=== PATIENT | male | born 1955 | race Caucasian/White ===

== ENCOUNTER → 2017-07-19 | Outpatient (CLI) | payer OTHER ==
[2016-03-18 14:01] VITALS: BP 157/71
[~2017-07-19] MED LIST: ALBU8.5H8 IH; ALBU8.5H8 INH; AMLO2.5T PO; AMLO5TAB2 PO; AMMO225L8 TP; ARFO15VI NEB; ASPI-482 PO; ASPI-630 PO; AZIL1TAB3 PO; AZIT250T6 PO; BENZ100C15 PO; BUDE0.5A11 IH; BUSP15TA PO; CARV12.52 PO; CETI10TA16 PO; CLIN300C8 PO; CLON0.1T PO; CLON0.3T PO; CRESTOR10 MG PO; CRESTOR40 MG PO; DOXY100C2 PO; ESOM40CA PO; FAMO20TA5 PO; FENO54TA PO; FLUT10.6 IH; FLUT16SP2 NS; FLUT1DIS5 IH; FURO-68 PO; FURO80TA72 PO; GABA-586 PO; HYDR-2766 PO; HYDR-2869 PO; HYDR-963 PO; INSU100C4 SQ; INSU100I27 SQ; INSU100V SQ; INSU200I SQ; IPRA0.2S5 NEB; LINA5TAB4 PO; LOSA100T6 PO; LUBI24CA7 PO; MELO15TA23 PO; METO2.5T PO; MOME17SP NS; MUPI22OI2 TP; NEBI10TA3 PO; NIFE30TA7 PO; OLME1TAB35 PO; ONDA4TAB10 SL; PANT40TA3 PO; PHEN37.5 PO; PRAM0.255 PO; PREG150C PO; PREG300C PO; RANO500T2 PO; TAMS0.4C97 PO; TIOT18CA IH; TOPI100T8 PO; TRIA15OI9 TP; ZOLP10TA4 PO; duoneb
--- NOTE | 2017-07-20 07:50 | RAD ---
3 views right and left foot 07/19/2017 Clinical indication: Right left foot pain. Comparison: None. Findings: Right foot: No acute fracture or traumatic malalignment. Joint spaces are maintained. There are diffuse vascular calcifications. Normal bony alignment. Left foot: No acute fracture or traumatic malalignment. Joint spaces are maintained. Normal bony alignment. Vascular calcifications are noted. Impression: No acute osseous abnormality.
== END | disposition home or self-care (01) ==
LOC: RAD 16:52
PROVIDERS: ATTEND Nurse Practitioner Family
DX: M25.872 Other specified joint disorders, left ankle and foot (principal); M25.871 Other specified joint disorders, right ankle and foot
CPT/HCPCS: 73630

== ENCOUNTER 2017-07-21 12:42 | Observation (INO) | payer OTHER ==
[2017-07-21] VITALS (8 sets, daily range): BP systolic 117–168; BP diastolic 51–83
[~2017-07-21] VITALS: Ht 162.6 cm; Wt 93.7 kg
[~2017-07-21 12:42] MED LIST changes: -AMMO225L8 TP; -BENZ100C15 PO; -DOXY100C2 PO; -MUPI22OI2 TP
[2017-07-21] MEDS ORDERED: DEXTROSE 50% 25 GM / 50ML DISP.SYRIN. IV PRN (15:15)
[2017-07-21] MEDS ORDERED: FUROSEMIDE 40 MG/4 ML VIAL IVP ONE (15:30)
[2017-07-21] MEDS ORDERED: DOXY100C2 PO (15:33)
[2017-07-21] MEDS ORDERED: BENZ100C15 PO (15:33)
[2017-07-21] MEDS ORDERED: TIOT18CA IH (15:33)
[2017-07-21] MEDS ORDERED: FURO-68 PO (15:33)
[2017-07-21] MEDS ORDERED: AMMO225L8 TP (15:33)
[2017-07-21] MEDS ORDERED: GABA-586 PO (15:33)
[2017-07-21] MEDS ORDERED: INSU100I27 SQ (15:33)
[2017-07-21] MEDS ORDERED: CETI10TA16 PO (15:33)
[2017-07-21 15:42] LABS: ALBUMIN 3.1 g/dL (3.4-5.0); ALBUMIN/GLOBULIN RATIO 0.8 (1.0-1.7); CREATININE 1.5 mg/dL (0.7-1.3); GFR 47.6; MAGNESIUM 1.8 mg/dL (1.8-2.4); POTASSIUM 3.9 mmol/L (3.5-5.1); TOTAL BILIRUBIN 0.4 mg/dL (0.2-1.0); URIC ACID 7.6 mg/dL (3.5-7.2)
--- NOTE | 2017-07-21 15:51 | RAD ---
Chest radiograph 2 views 07/21/2017 Clinical indication: Congestive heart biliary, shortness of breath Comparison: Chest radiographs 03/17/2016. Findings: Cardiac and mediastinal silhouettes are unremarkable. There is a tiny calcified granuloma in the left lung base. Mild bibasilar atelectasis. No pleural effusion, pneumothorax or focal consolidation. Impression: Mild bibasilar atelectasis without evidence of CHF or consolidating pneumonia.
[2017-07-21 16:24] LABS: BASO # 0.1 x10^3/uL (0.0-0.2); BASO % 1 % (0-3); EOS # 0.3 x10^3/uL (0.0-0.7); EOS % 4 % (0-3); HEMATOCRIT 40.8 % (39.0-53.0); HEMOGLOBIN 13.2 g/dL (13.0-17.5); LYMPH # 1.7 x10^3/uL (1.0-4.8); LYMPH % 22 % (24-48); MEAN CORPUSCULAR HEMOGLOBIN 28 pg (25-35); MEAN CORPUSCULAR HGB CONC 32 g/dL (31-37); MEAN CORPUSCULAR VOLUME 86 fL (79-100); MONO # 0.7 x10^3/uL (0.0-1.1); MONO % 10 % (0-9); NEUT # 4.7 x10^3uL (1.8-7.7); NEUT % 63 % (31-73); PLATELET COUNT 305 x10^3/uL (140-400); RED BLOOD COUNT 4.75 x10^6/uL (4.30-5.70); RED CELL DISTRIBUTION WIDTH 15.8 % (11.5-14.5); WHITE BLOOD COUNT 7.5 x10^3/uL (4.0-11.0)
[2017-07-21] MEDS: INSULIN ASPART 300 UNITS/3 ML INSULN.PEN SQ SCH ×2 (16:30→21:37)
[2017-07-21] MEDS ORDERED: TRIAMCINOLONE ACETONIDE 0.1% TOPICAL CREAM 15GM TUBE. TP PRN (16:45)
[2017-07-21 17:41] LABS: SEDIMENTATION RATE 65 (0-15)
[2017-07-21] MEDS: HYDROcodone/APAP 10/325 1 TAB TABLET PO PRN (17:55)
[2017-07-21 18:30] LABS: BILIRUBIN,URINE NEG (NEG); CLARITY,URINE CLEAR; COLOR,URINE STRAW; GLUCOSE,URINE 100 mg/dL (NEG)
[2017-07-21 18:31] LABS: BACTERIA,URINE 0 /HPF (0-FEW); NITRITE,URINE NEG (NEG); RBC,URINE 0 /HPF (0-2); SQUAMOUS EPITHELIAL CELL,UR OCC /LPF; UROBILINOGEN,URINE 0.2 mg/dL (0.2 mg/dL); WBC,URINE OCC /HPF (0-4)
[2017-07-21] MEDS: BUDESONIDE 0.5 MG/2 ML NEBU NEB SCH (20:00)
[2017-07-21] MEDS: IPRATRPIUM/ALBUTEROL 0.5/2.5MG 3 ML NEBU. NEB SCH (20:00)
--- NOTE | 2017-07-21 20:39 | HP ---
ADMIT DATE: 07/21/2017 REASON FOR ADMISSION: Fluid overload. HISTORY OF PRESENT ILLNESS: This is a 62-year-old gentleman who was directly admitted from Dr. Dubois's office for 11-pound weight gain in the last several days. He does have a history of admission to [facility] recently for the same fluid overload. He has an extensive medical history. He does complain of a little bit of shortness of breath, a little bit of chest pain and generalized swelling of the abdomen and feet. PAST MEDICAL HISTORY: COPD, diastolic heart failure, has had acute on chronic as well as chronic, congestive heart failure, edema, hyperkalemia, peripheral vascular disease, type 1 diabetes, renal failure, fatty liver, hypertension, GERD, sarcoidosis, venous stasis, gastroparesis, onychomycosis, sleep apnea, chronic low back pain, diabetic neuropathy of the feet, stress and anxiety. He also has a history of MRSA, constipation, BPH, leg pain. ALLERGIES: Losartan, penicillin, morphine. MEDICATIONS: Reviewed as best as could be done and corrected. He knows his medications fairly well. He states his current Lasix dose is 40 mg b.i.d. and his Flomax was just increased to 0.4 b.i.d. He also recently finished doxycycline, which was started on 07/10. FAMILY HISTORY: Negative. SOCIAL HISTORY: The patient quit smoking in 1989. No alcohol or drug use. REVIEW OF SYSTEMS: Multifactorial. He has foot pain. He has toenail pain. He has pain in his legs, little bit of shortness of breath, cough, distended abdomen, fluid retention and weight gain of 11 pounds. OBJECTIVE: VITAL SIGNS: Blood pressure 168/76, pulse 84, respirations 20, pulse ox 96% on room air, temperature 97.8. Height 64 inches, weight 205.31 pounds. The patient's weight in March was 185 and his weight just a few days ago was 189 pounds on 05/24. GENERAL: A pleasant 62-year-old in no acute distress. HEENT: Hearing is normal. Eyes are clear. Nose patent. Throat is clear. He is edentulous. NECK: Supple. There is no JVD. LUNGS: With few scattered rhonchi, otherwise clear. CARDIOVASCULAR: Regular rhythm and rate. ABDOMEN: Very distended almost tympanitic, but nontender to palpation. Bowel sounds are positive. EXTREMITIES: With 3+ edema. All of his toes have onychomycosis and both great toes are mildly erythematous with evidence of ingrown toenail appearance. LABORATORY DATA: Sodium 134. BUN 41, creatinine 1.5, glucose 319. His uric acid was 7.6. Other labs are pending. Chest x-ray: Mild basilar atelectasis without evidence of CHF or pneumonia. Rest of the studies are pending. ASSESSMENT: 1. Acute on chronic congestive heart failure. 2. Ingrown toenails. 3. Hyperuricemia, but doubt gout. 4. Fatty liver. 5. Weight gain. 6. Type 1 diabetes with hyperglycemia and hypoglycemia. 7. History of coronary artery disease with stent deployment in 2002. 8. Hyperlipidemia. 9. Chronic obstructive pulmonary disease. 10. Urinary retention. 11. Benign prostatic hypertrophy. PLAN: IV Lasix twice a day. Strict I and O. Flomax adjusted to 0.4 twice a day as just ordered. Discontinue doxycycline as he completed that. We will try just a little Bactroban around the toenails. Discussed with Dr. Dubois concerning the uric acid of 7.6. Cardiology consult. BRENDA DELAROSA DO DR: MARCOS/soledad JOB#: [id number] / [id number]
[2017-07-21] MEDS ORDERED: NON FORMULARY ITEM (Arformoterol Tartrate (Brovana) 15 MCG) NEB SCH (21:00)
[2017-07-21] MEDS ORDERED: DOXYCYCLINE HYCLATE 100 MG TABLET PO SCH (21:00)
[2017-07-21] MEDS ORDERED: IPRATROPIUM BROMIDE 0.5 MG/2.5 ML NEBU. NEB SCH (21:00)
[2017-07-21] MEDS: RANOLAZINE 500 MG TAB.ER.12H PO SCH (21:22)
[2017-07-21] MEDS: busPIRone 15 MG TABLET. PO SCH (21:22)
[2017-07-21] MEDS: BENZONATATE 100 MG CAPSULE. PO SCH (21:22)
[2017-07-21] MEDS: TAMSULOSIN 0.4 MG CAP.ER.24H. PO SCH (21:23)
[2017-07-21] MEDS: METOPROLOL TART IMMED RELEASE 50 MG TABLET PO SCH (21:23)
[2017-07-21] MEDS: PREGABALIN 150 MG CAPSULE PO SCH (21:23)
[2017-07-21] MEDS: GABAPENTIN 300 MG CAPSULE. PO SCH (21:23)
[2017-07-21] MEDS: ATORVASTATIN CALCIUM 20 MG TABLET PO SCH (21:24)
[2017-07-21] MEDS: MUPIROCIN 2% TOPICAL OINTMENT 22GM TUBE. TP SCH (21:24)
[2017-07-21] MEDS: AMMONIUM LACTATE 12% TOPICAL LOTION 226GM BOTTLE. TP SCH (21:24)
[2017-07-21] MEDS: INSULIN DETEMIR 300 UNITS/3 ML INSULN.PEN. SQ SCH (21:37)
[2017-07-22] VITALS (19 sets, daily range): BP systolic 117–149; BP diastolic 47–71
[2017-07-22] MEDS: HYDROcodone/APAP 10/325 1 TAB TABLET PO PRN ×3 (00:13→15:39)
[2017-07-22] MEDS: IPRATRPIUM/ALBUTEROL 0.5/2.5MG 3 ML NEBU. NEB SCH ×4 (05:16→20:33)
[2017-07-22 06:28] LABS: BASO # 0.1 x10^3/uL (0.0-0.2); BASO % 2 % (0-3); EOS # 0.4 x10^3/uL (0.0-0.7); EOS % 6 % (0-3); HEMATOCRIT 39.7 % (39.0-53.0); HEMOGLOBIN 13.9 g/dL (13.0-17.5); LYMPH # 2.1 x10^3/uL (1.0-4.8); LYMPH % 32 % (24-48); MEAN CORPUSCULAR HEMOGLOBIN 29 pg (25-35); MEAN CORPUSCULAR HGB CONC 35 g/dL (31-37); MEAN CORPUSCULAR VOLUME 84 fL (79-100); MONO # 0.9 x10^3/uL (0.0-1.1); MONO % 13 % (0-9); NEUT # 3.1 x10^3uL (1.8-7.7); NEUT % 48 % (31-73); PLATELET COUNT 287 x10^3/uL (140-400); RED BLOOD COUNT 4.72 x10^6/uL (4.30-5.70); RED CELL DISTRIBUTION WIDTH 15.5 % (11.5-14.5); WHITE BLOOD COUNT 6.6 x10^3/uL (4.0-11.0)
[2017-07-22 06:38] LABS: CREATININE 1.4 mg/dL (0.7-1.3); GFR 51.5; MAGNESIUM 1.9 mg/dL (1.8-2.4)
[2017-07-22] MEDS: INSULIN ASPART 300 UNITS/3 ML INSULN.PEN SQ SCH ×4 (07:30→21:00)
[2017-07-22] MEDS: busPIRone 15 MG TABLET. PO SCH ×2 (08:39→21:15)
[2017-07-22] MEDS: ASPIRIN 81 MG TAB.CHEW PO SCH (08:39)
[2017-07-22] MEDS: metOLazone 2.5 MG TABLET PO SCH (08:40)
[2017-07-22] MEDS: PREGABALIN 150 MG CAPSULE PO SCH ×2 (08:41→21:14)
[2017-07-22] MEDS: METOPROLOL TART IMMED RELEASE 50 MG TABLET PO SCH ×2 (08:41→21:13)
[2017-07-22] MEDS: GABAPENTIN 300 MG CAPSULE. PO SCH ×3 (08:41→21:13)
[2017-07-22] MEDS: CETIRIZINE HCL 10 MG TABLET PO SCH (08:42)
[2017-07-22] MEDS: BENZONATATE 100 MG CAPSULE. PO SCH ×3 (08:42→21:13)
[2017-07-22] MEDS: RANOLAZINE 500 MG TAB.ER.12H PO SCH ×2 (08:42→21:16)
[2017-07-22] MEDS: MUPIROCIN 2% TOPICAL OINTMENT 22GM TUBE. TP SCH ×2 (08:43→21:16)
[2017-07-22] MEDS: AMMONIUM LACTATE 12% TOPICAL LOTION 226GM BOTTLE. TP SCH ×2 (08:43→21:16)
[2017-07-22] MEDS: PANTOPRAZOLE 40 MG TABLET. PO SCH (08:44)
[2017-07-22] MEDS: TAMSULOSIN 0.4 MG CAP.ER.24H. PO SCH ×2 (08:44→21:13)
[2017-07-22] MEDS ORDERED: TAMSULOSIN 0.4 MG CAP.ER.24H. PO SCH (09:00)
[2017-07-22] MEDS: FLUTICASONE 50MCG/NASAL SPRAY 16GM BOTTLE. NS SCH (09:07)
[2017-07-22] MEDS: BUDESONIDE 0.5 MG/2 ML NEBU NEB SCH ×2 (09:44→20:34)
--- NOTE | 2017-07-22 10:02 | RAD ---
PQRS Compliance Statement: One or more of the following individualized dose reduction techniques were utilized for this examination: 1. Automated exposure control 2. Adjustment of the mA and/or kV according to patient size 3. Use of iterative reconstruction technique CT CHEST ABDOMEN PELVIS WO Clinical Indication: sob, anasarca, sarcoidosis. Chest and abdominal pain x1 day. Comparison: CT chest with contrast 09/08/2004. Technique: Helical CT imaging of the chest abdomen and pelvis is performed without IV or oral contrast. Findings: Evaluation of vascular structures, solid organs and bowel is limited without oral and IV contrast and may decrease sensitivity for detection of pathology. Thyroid is symmetric. Mediastinal and bilateral hilar adenopathy is improved from the prior study. There is an enlarged right paratracheal lymph node measuring 1.4 cm. There are calcified subcarinal and left hilar lymph nodes. Left axillary lymph nodes are benign-appearing. Great vessels are normal caliber. There is coronary artery disease. Mitral annular calcification. Cardiac size normal, no pericardial effusion. There is no pleural effusion. The central airways are patent. Mild respiratory motion artifact. Mild scarring or atelectasis in the medial upper lobes anteriorly. Calcified granuloma left lower lobe. Mild scarring or atelectasis in the bilateral lower lobes just above the hemidiaphragms. Lungs otherwise clear. Calcified granulomas in the liver and the spleen. Cholecystectomy. Atrophic pancreas. Adrenal glands, and abdominal aorta caliber are normal. There is no hydronephrosis. Stomach unremarkable. No dilated small bowel. No colon wall thickening. Large colon stool volume. Appendix is not identified, no secondary signs of appendicitis. No abdominal adenopathy or free fluid. There is motion artifact in the midabdomen degrading image quality. Urinary bladder is distended, otherwise normal. Prostate size normal. No pelvic free fluid. Bilateral inguinal lymph nodes may be reactive. No compression fracture in the thoracolumbar spine. IMPRESSION: 1. Mild scarring or atelectasis in the lungs. 2. Mediastinal and bilateral hilar adenopathy is improved from prior study. 3. There is large colon stool volume, correlate for constipation.
[2017-07-22] MEDS: FUROSEMIDE 40 MG/4 ML VIAL IVP SCH ×2 (10:08→14:03)
[2017-07-22] MEDS: POLYETHYLENE GLYCOL 3350 17 GM PACKET. PO SCH (10:30)
--- NOTE | 2017-07-22 11:36 | PDOC2 ---
CONSULT Date of Admission DATE: 07/22/17 TIME: 10:59 Reason for Consult: diastolic heart failure History of Present Illness Mr Adair is a 62 year old male with history of coronary artery disease with prior PCI/Stenting, chronic diastolic heart failure, hypertension and type 1 diabetes mellitus. He reports an admission to [facility] a couple weeks ago with edema, renal failure and he reports being treated with antibiotics. He most recently had an echo about 2 months ago that was reportedly normal. He normally [facility] with [facility]. He reports after discharge from the hospital he had a significant increase in his swelling so went back to his PCP. He complains of increased dyspnea and a non productive cough. He denies fever or chills. He has 4 pillow orthopnea that he reports is chronic and unchanged. He reports a stress test last year that was ok and his last 2 cardiac catheterizations have not revealed patent stents. Past Medical History COPD, diastolic heart failure, edema, hyperkalemia, peripheral vascular disease , type 1 diabetes, renal failure, fatty liver, hypertension, GERD, sarcoidosis, venous stasis, gastroparesis, onychomycosis, sleep apnea, chronic low back pain , diabetic neuropathy of the feet, anxiety, MRSA, constipation, BPH. CAD with bare metal stent to LAD in 2002 followed by balloon angioplasty for in- stent restenosis in Aug 2003 and Aug 2004. Echo 03/14/16 The left ventricle is normal size. There is normal left ventricular wall thickness. There is normal LV segmental wall motion. Left ventricular systolic function is normal. The estimated ejection fraction is 60-65%. The left ventricular diastolic function and filling is normal for age. There is mild aortic valve sclerosis. The PA pressure is estimated at 23 mmHg. Cardiac cath 02/20/15 1. Systemic hypertension with mildly elevated left ventricular end-diastolic pressure. 2. Patent stents in the proximal left anterior descending coronary artery with mild disease elsewhere. 3. The patient was previously known to have normal left ventricular systolic function with an estimated ejection fraction of 60% to 65% by echocardiogram that was performed in 05/2014. 6 MINUTE WALK TEST IMPRESSION (06/18/2014): Six minute walk test did not reveal desaturation or chronotropic insufficiency. Functional capacity was good. EXERCISE NUCLEAR STRESS TEST IMPRESSION (03/26/2013): Hemodynamic response: There was a normal heart rate and a normal blood pressure response to stress. Clinical response: There was chest pain during stress, which resolved during recovery. Arrhythmias: None. Stress ECG: There were no significant stress induced ECG changes. Exercise capacity: Fair. Myocardial perfusion: Normal perfusion without evidence of infarction or ischemia. Wall motion: Normal. Ejection fraction: 72%. Compared to the report (images were not available for review) from the previous study performed on 06/13/2011, there was no significant change. Family History non contributory Social History quit smoking >15 yrs ago, no significant ETOH, no illicit drugs Current Medications Current Medications Furosemide (Lasix) 40 mg 1X ONCE IVP Last administered on 07/21/17 15:48; Start 07/21/17 at 15:30; Stop 07/21/17 at 15:31; Status DC Insulin Aspart (NovoLOG) 0-9 UNITS QIDACHS SQ Last administered on 07/21/17 21:37; Start 07/21/17 at 16:30 Dextrose 12.5 gm PRN Q15MIN PRN IV SEE COMMENTS Last administered on 17:12; Start 07/21/17 at 15:15 Lactic Acid (Lac-Hydrin) 1 sully BID TP Last administered on 07/22/17 08:43; Start 07/21/17 at 21:00 Aspirin (Children'S Aspirin) 81 mg DAILY PO Last administered on 07/22/17 08: 39; Start 07/22/17 at 09:00 Benzonatate (Tessalon Perle) 100 mg TID PO Last administered on 07/22/17 08: 42; Start 07/21/17 at 21:00 Buspirone HCl (Buspar) 15 mg BID PO Last administered on 07/22/17 08:39; Start 07/21/17 at 21:00 Cetirizine HCl (ZyrTEC) 10 mg DAILY PO Last administered on 07/22/17 08:42; Start 07/22/17 at 09:00 Gabapentin (Neurontin) 300 mg TID PO Last administered on 07/22/17 08:41; Start 07/21/17 at 21:00 Hydralazine HCl (Apresoline) 75 mg TID PO Last administered on 07/22/17 08:39 ; Start 07/21/17 at 21:00 Acetaminophen/ Hydrocodone Bitart (Lortab 10/325) 2 tab PRN Q6HRS PRN PO PAIN Last administered on 07/22/17 08:48; Start 07/21/17 at 16:00 Insulin Detemir (Levemir) 16 units HS SQ Last administered on 07/21/17 21:37 ; Start 07/21/17 at 21:00 Ipratropium [employer] (Atrovent) 0.2 mg TID NEB ; Start 07/21/17 at 21:00; Status Cancel Metolazone (Zaroxolyn) 2.5 mg DAILY PO Last administered on 07/22/17 08:40; Start 07/22/17 at 09:00 Pregabalin (Lyrica) 150 mg DAILY PO Last administered on 07/22/17 08:41; Start 07/22/17 at 09:00 Ranolazine (Ranexa) 500 mg BID PO Last administered on 07/22/17 08:42; Start 07/21/17 at 21:00 Tamsulosin HCl (Flomax) 0.4 mg DAILY PO ; Start 07/22/17 at 09:00; Stop at 09:00; Status DC Non-Formulary Medication 15 mcg BID NEB ; Start 07/21/17 at 21:00; Stop at 21:00; Status DC Doxycycline Hyclate (Vibra-Tab) 100 mg BID PO ; Start 07/21/17 at 21:00; Stop 07/21/17 at 21:00; Status DC Pantoprazole Sodium (Protonix) 40 mg DAILYAC PO Last administered on 08:44; Start 07/22/17 at 07:30 Budesonide (Pulmicort) 0.5 mg RTBID NEB Last administered on 07/22/17 09:44; Start 07/21/17 at 20:00 Fluticasone Propionate (Flonase) 2 spray DAILY NS Last administered on 09:07; Start 07/22/17 at 09:00 Metoprolol Tartrate (Lopressor) 50 mg BID PO Last administered on 07/22/17 08 :41; Start 07/21/17 at 21:00 Pregabalin (Lyrica) 300 mg QHS PO Last administered on 07/21/17 21:23; Start 07/21/17 at 21:00 Atorvastatin Calcium (Lipitor) 40 mg QHS PO Last administered on 07/21/17 21: 24; Start 07/21/17 at 21:00 Albuterol/ Ipratropium (Duoneb) 3 ml RTQID NEB Last administered on 07/22/17 09:44; Start 07/21/17 at 20:00 Triamcinolone Acetonide (Kenalog) 1 sully BID PRN TP ITCHING Last administered on 07/22/17 08:42; Start 07/21/17 at 16:45 Tamsulosin HCl (Flomax) 0.4 mg BID PO Last administered on 07/22/17 08:44; Start 07/21/17 at 21:00 Mupirocin (Bactroban) 1 sully BID TP Last administered on 07/22/17 08:43; Start 07/21/17 at 21:00 Furosemide (Lasix) 40 mg BID92 IVP Last administered on 07/22/17 10:08; Start 07/22/17 at 09:15 Polyethylene Glycol (miraLAX) 17 gm DAILY PO ; Start 07/22/17 at 10:30 Active Scripts Active Hydralazine Hcl 50 Mg Tablet 75 Mg PO TID 30 Days Reported Lasix (Furosemide) 40 Mg Tablet 40 Mg PO BID Spiriva (Tiotropium [employer]) 18 Mcg Cap.w.dev 1 Cap IH DAILY Doxycycline Hyclate 100 Mg Capsule 1 Cap PO BID 10 Days Levemir Flextouch (Insulin Detemir) 100 Unit/1 Ml Insuln.pen 16 Unit SQ HS Skin Treatment (Ammonium Lactate) 225 Gm Lotion 225 Gm TP BID Gabapentin 300 Mg Capsule 300 Mg PO TID Benzonatate 100 Mg Capsule 1 Cap PO TID Cetirizine Hcl 10 Mg Tablet 1 Tab PO DAILY Triamcinolone Acetonide 15 Gm Oint...g. 1 Sully TP PRN BID PRN LAST DOSE GIVEN: DATE: TIME: NEXT DOSE DUE: DATE: TODAY TIME: WHEN NEEDED Nexium Capsule (Esomeprazole Magnesium) 40 Mg Capsule.dr 40 Mg PO DAILYAC LAST DOSE GIVEN: DATE: TIME: NEXT DOSE DUE: DATE: RESTART TOMORROW TIME: AM [place] 10-325 Tablet (Hydrocodone Bit/Acetaminophen) 1 Each Tablet 2 Tab PO PRN Q6HRS PRN LAST DOSE GIVEN: DATE: TIME: NEXT DOSE DUE: DATE: TODAY TIME: WHEN NEEDED Brovana (Arformoterol Tartrate) 15 Mcg/2 Ml Vial.neb 15 Mcg NEB BID LAST DOSE GIVEN: DATE: TIME: NEXT DOSE DUE: DATE: TODAY TIME: EVENING Humalog Kwikpen (Insulin Lispro) 200 Unit/1 Ml Insuln.pen 4-6 Unit SQ PRN BFRMEAL PRN LAST DOSE GIVEN: DATE: TIME: BEFORE LUNCH NEXT DOSE DUE: DATE: TODAY TIME: BEFORE DINNER Ipratropium [employer] 0.2 Mg/1 Ml Solution 0.2 Mg NEB TID LAST DOSE GIVEN: DATE: TIME: AFTERNOON NEXT DOSE DUE: DATE: TODAY TIME: PM Ranexa (Ranolazine) 500 Mg Tab.er.12h 500 Mg PO BID LAST DOSE GIVEN: DATE: TIME: AM NEXT DOSE DUE: DATE: TODAY TIME: PM Aspirin 81 Mg Tab.chew 81 Mg PO DAILY LAST DOSE GIVEN: DATE: TIME: AM NEXT DOSE DUE: DATE: TOMORROW TIME: AM Advair 500-50 Diskus (Fluticasone/Salmeterol) 1 Each Disk.w.dev 1 Puff IH BID LAST DOSE GIVEN: DATE: TIME: NEXT DOSE DUE: DATE: RESTART TODAY TIME: PM Flomax (Tamsulosin Hcl) 0.4 Mg Cap.er.24h 0.4 Mg PO DAILY LAST DOSE GIVEN: DATE: TIME: AM NEXT DOSE DUE: DATE: TIME: AM Bystolic (Nebivolol Hcl) 10 Mg Tablet 10 Mg PO DAILY LAST DOSE GIVEN: DATE: TIME: AM NEXT DOSE DUE: DATE: ORR TIME: AM Crestor (Rosuvastatin Calcium) 10 Mg Tablet 10 Mg PO HS LAST DOSE GIVEN: DATE: YESTER TIME: AT BEDTIME NEXT DOSE DUE: DATE: TODAY TIME: AT BEDTIME Lyrica (Pregabalin) 300 Mg Capsule 300 Mg PO QHS LAST DOSE GIVEN: DATE: YES TIME: AT BEDTIME NEXT DOSE DUE: DATE: TODAY TIME: AT BEDTIME Lyrica (Pregabalin) 150 Mg Capsule 150 Mg PO DAILY LAST DOSE GIVEN: DATE: TIME: AM NEXT DOSE DUE: DATE: TOMORR TIME: AM Metolazone 2.5 Mg Tablet 2.5 Mg PO DAILY LAST DOSE GIVEN: DATE: TODAY TIME: AM NEXT DOSE DUE: DATE: TOMORROW TIME: AM Buspirone Hcl 15 Mg Tablet 15 Mg PO BID LAST DOSE GIVEN: DATE: TODAY TIME: AM NEXT DOSE DUE: DATE: TODAY TIME: PM Proair Hfa Inhaler (Albuterol Sulfate) 8.5 Gm Hfa.aer.ad 1-2 Puff INH PRN Q4- 6HRS PRN LAST DOSE GIVEN: DATE: TIME: NEXT DOSE DUE: DATE: TODAY TIME: WHEN NEEDED Nasonex (Mometasone Furoate) 17 Gm [place].pump 2 Sprays NS BID LAST DOSE GIVEN: DATE: TODAY TIME: AM NEXT DOSE DUE: DATE: TODAY TIME: PM Allergies: Coded Allergies: Losartan (Verified Allergy, Intermediate, vomiting, 03/10/15) Penicillins (Verified Allergy, Intermediate, 03/10/15) morphine (Verified Allergy, Intermediate, irritation to iv site, 03/10/15) Review of System as per HPI General: Alert, Oriented X3, Cooperative, No acute distress Lungs: Other (few left basilar crackles otherwise clear) Heart: Regular rate, Normal S1, Normal S2, Other (no significant murmurs, no gallops, clicks or rubs) Abdomen: Normal bowel sounds, No tenderness, Other (distended) Extremities: No cyanosis, Other (bilateral lower extremity edema +1-2, right > left) Neuro: Normal speech, Strength at 5/5 X4 ext Psych/Mental Status: Mental status NL, Mood NL VITALS Vital Signs Date Time Temp Pulse Resp B/P (MAP) Pulse Ox O2 Delivery O2 Flow Rate FiO2 07/22/17 10:41 74 19 134/56 (82) 91 Room Air 07/21/17 18:45 98.4 Labs Laboratory Tests Test 07/21/17 15:00 07/21/17 16:32 07/21/17 16:59 07/21/17 17:14 White Blood Count 7.5 x10^3/uL (4.0-11.0) Red Blood Count 4.75 x10^6/uL (4.30-5.70) Hemoglobin 13.2 g/dL (13.0-17.5) Hematocrit 40.8 % (39.0-53.0) Mean Corpuscular Volume 86 fL (79-100) Mean Corpuscular Hemoglobin 28 pg (25-35) Mean Corpuscular Hemoglobin Concent 32 g/dL (31-37) Red Cell Distribution Width 15.8 % (11.5-14.5) Platelet Count 305 x10^3/uL (140-400) Neutrophils (%) (Auto) 63 % (31-73) Lymphocytes (%) (Auto) 22 % (24-48) Monocytes (%) (Auto) 10 % (0-9) Eosinophils (%) (Auto) 4 % (0-3) Basophils (%) (Auto) 1 % (0-3) Neutrophils # (Auto) 4.7 x10^3uL (1.8-7.7) Lymphocytes # (Auto) 1.7 x10^3/uL (1.0-4.8) Monocytes # (Auto) 0.7 x10^3/uL (0.0-1.1) Eosinophils # (Auto) 0.3 x10^3/uL (0.0-0.7) Basophils # (Auto) 0.1 x10^3/uL (0.0-0.2) Erythrocyte Sedimentation Rate 65 (0-15) Nasal Screen MRSA (PCR) Negative (Negative) Sodium Level 134 mmol/L (136-145) Potassium Level 3.9 mmol/L (3.5-5.1) Chloride Level 97 mmol/L (98-107) Carbon Dioxide Level 26 mmol/L (21-32) Anion Gap 11 (6-14) Blood Urea Nitrogen 42 mg/dL (8-26) Creatinine 1.5 mg/dL (0.7-1.3) Estimated GFR (Cockcroft-Gault) 47.6 BUN/Creatinine Ratio 28 (6-20) Glucose Level 319 mg/dL (70-99) Uric Acid 7.6 mg/dL (3.5-7.2) Calcium Level 9.0 mg/dL (8.5-10.1) Magnesium Level 1.8 mg/dL (1.8-2.4) Total Bilirubin 0.4 mg/dL (0.2-1.0) Aspartate Amino Transf (AST/SGOT) 21 U/L (15-37) Alanine Aminotransferase (ALT/SGPT) 25 U/L (16-63) Alkaline Phosphatase 144 U/L (46-116) Total Protein 7.0 g/dL (6.4-8.2) Albumin 3.1 g/dL (3.4-5.0) Albumin/Globulin Ratio 0.8 (1.0-1.7) Glucose (Fingerstick) 65 mg/dL (70-99) 41 mg/dL (70-99) 151 mg/dL (70-99) Test 07/21/17 18:00 07/21/17 21:21 07/22/17 00:10 07/22/17 05:40 Urine Collection Type Unknown Urine Color Straw Urine Clarity Clear Urine pH 5.5 Urine Specific [place] <=1.005 Urine Protein Neg (NEG-TRACE) Urine Glucose (UA) 100 mg/dL (NEG) Urine Ketones (Stick) Neg mg/dL (NEG) Urine Blood Neg (NEG) Urine Nitrite Neg (NEG) Urine Bilirubin Neg (NEG) Urine Urobilinogen Dipstick 0.2 mg/dL (0.2 mg/dL) Urine Leukocyte Esterase Neg (NEG) Urine RBC 0 /HPF (0-2) Urine WBC Occ /HPF (0-4) Urine Squamous Epithelial Cells Occ /LPF Urine Bacteria 0 /HPF (0-FEW) Glucose (Fingerstick) 304 mg/dL (70-99) 274 mg/dL (70-99) White Blood Count 6.6 x10^3/uL (4.0-11.0) Red Blood Count 4.72 x10^6/uL (4.30-5.70) Hemoglobin 13.9 g/dL (13.0-17.5) Hematocrit 39.7 % (39.0-53.0) Mean Corpuscular Volume 84 fL (79-100) Mean Corpuscular Hemoglobin 29 pg (25-35) Mean Corpuscular Hemoglobin Concent 35 g/dL (31-37) Red Cell Distribution Width 15.5 % (11.5-14.5) Platelet Count 287 x10^3/uL (140-400) Neutrophils (%) (Auto) 48 % (31-73) Lymphocytes (%) (Auto) 32 % (24-48) Monocytes (%) (Auto) 13 % (0-9) Eosinophils (%) (Auto) 6 % (0-3) Basophils (%) (Auto) 2 % (0-3) Neutrophils # (Auto) 3.1 x10^3uL (1.8-7.7) Lymphocytes # (Auto) 2.1 x10^3/uL (1.0-4.8) Monocytes # (Auto) 0.9 x10^3/uL (0.0-1.1) Eosinophils # (Auto) 0.4 x10^3/uL (0.0-0.7) Basophils # (Auto) 0.1 x10^3/uL (0.0-0.2) Sodium Level 135 mmol/L (136-145) Potassium Level 4.0 mmol/L (3.5-5.1) Chloride Level 97 mmol/L (98-107) Carbon Dioxide Level 34 mmol/L (21-32) Anion Gap 4 (6-14) Blood Urea Nitrogen 39 mg/dL (8-26) Creatinine 1.4 mg/dL (0.7-1.3) Estimated GFR (Cockcroft-Gault) 51.5 Glucose Level 145 mg/dL (70-99) Calcium Level 9.0 mg/dL (8.5-10.1) Magnesium Level 1.9 mg/dL (1.8-2.4) Test 07/22/17 08:04 Glucose (Fingerstick) 139 mg/dL (70-99) Images CXR - Impression: Mild bibasilar atelectasis without evidence of CHF or consolidating pneumonia. CT IMPRESSION: 1. Mild scarring or atelectasis in the lungs. 2. Mediastinal and bilateral hilar adenopathy is improved from prior study. 3. There is large colon stool volume, correlate for constipation. Assessment/Plan 1. chronic diastolic heart failure 2. COPD exacerbation 3. peripheral edema 4. Coronary artery disease s/p prior PCI stents as described above 5. hypertension 6. hyperlipidemia 7. recent ARF on CKD 8. type 1 diabetes mellitus Request echo and recent admission records from [facility]. Continue with diuresis with close monitoring of renal function. DVT sono. COPD mgmt per PCP. Continue home antianginals, antihypertensives. Problems: MAGDALENE DON [employer] Jul 22, 2017 11:36
[2017-07-22] MEDS ORDERED: METHYLNALTREXONE 12 MG/0.6 ML VIAL. SQ ONE (12:00)
[2017-07-22] MEDS ORDERED: ENOXAPARIN 40 MG/0.4 ML DISP.SYRIN. SQ SCH ×2 (12:00→18:30)
--- NOTE | 2017-07-22 12:14 | PN ---
DATE: 07/22/2017 PROBLEMS: 1. Fluid overload. 2. Anasarca. 3. Acute on chronic diastolic heart failure. 4. Mild ingrown toenails. 5. Hyperuricemia. 6. Fatty liver. 7. A 15-pound weight gain. 8. History of coronary artery disease. 9. Chronic obstructive pulmonary disease. 10. Urinary retention. 11. Benign prostatic hypertrophy. SUBJECTIVE: Resting comfortably in bed, received 40 mg of Lasix IV, but the weight does not appear to be accurate as he has a negative 1190 deficit, so should have lost couple of pounds. He is still mildly short of breath, feels less puffy. OBJECTIVE: VITAL SIGNS: Blood pressure 147/56, pulse 67, respirations 14, pulse ox is 91% to 94% on room air. GENERAL: Resting comfortably currently. HEENT: His tongue is moist. NECK: Supple. LUNGS: Clear. CARDIOVASCULAR: Regular rhythm and rate. ABDOMEN: Large, somewhat distended, little bit less tympanic, little bit less tight. EXTREMITIES: With diminished edema, more on the left than the right. LABORATORY DATA: Sed rate was 65. Uric acid was 7.6. Sodium 135, potassium is 4, BUN 39, creatinine 1.4, slightly better than yesterday. He has had some low blood sugars, he had a low blood sugar of 41, now it is 139. CT of the chest, abdomen and pelvis without contrast shows mild scarring atelectasis in the lung, mediastinum and bilateral hilar adenopathy improved from prior study, large colon stool volume. PLAN: Start some MiraLax and continue with Lasix [address] Dubois, this is his patient, has been assisting me with knowing this complicated case. BRENDA DELAROSA DO DR: MARCOS/soledad JOB#: [id number] / [id number]
[2017-07-22] MEDS ORDERED: INSULIN ASPART 300 UNITS/3 ML INSULN.PEN SQ ONE ×2 (12:15→17:30)
--- NOTE | 2017-07-22 13:38 | RAD ---
RIGHT LOWER EXTREMITY VENOUS DOPPLER ULTRASOUND Clinical indication:swelling of right leg Comparison: None. Technique: Real-time grayscale, color-flow, and Doppler spectral waveform analysis of the deep vein system of the lower extremities is performed. Findings: All visualized right vein segments compress, augment, and demonstrate color flow normally. There is no evidence of thrombus. The left common femoral vein is also noted to be patent. IMPRESSION: No evidence of deep vein thrombosis in the right lower extremity.
[2017-07-22] MEDS: ATORVASTATIN CALCIUM 20 MG TABLET PO SCH (21:14)
[2017-07-22] MEDS: INSULIN DETEMIR 300 UNITS/3 ML INSULN.PEN. SQ SCH (22:20)
[2017-07-23 04:11] VITALS: BP 133/58
[2017-07-23 05:57] VITALS: BP 145/68
[2017-07-23] MEDS: IPRATRPIUM/ALBUTEROL 0.5/2.5MG 3 ML NEBU. NEB SCH ×2 (05:57→09:56)
[2017-07-23] MEDS: HYDROcodone/APAP 10/325 1 TAB TABLET PO PRN (06:18)
[2017-07-23 07:00] LABS: ALBUMIN 3.1 g/dL (3.4-5.0); ALBUMIN/GLOBULIN RATIO 0.7 (1.0-1.7); CALCIUM 9.1 mg/dL (8.5-10.1); CREATININE 1.8 mg/dL (0.7-1.3); GFR 38.6; MAGNESIUM 2.1 mg/dL (1.8-2.4); POTASSIUM 4.3 mmol/L (3.5-5.1); TOTAL BILIRUBIN 0.3 mg/dL (0.2-1.0); TOTAL PROTEIN 7.3 g/dL (6.4-8.2)
[2017-07-23 07:02] LABS: BASO # 0.1 x10^3/uL (0.0-0.2); BASO % 1 % (0-3); EOS # 0.2 x10^3/uL (0.0-0.7); EOS % 3 % (0-3); HEMATOCRIT 40.8 % (39.0-53.0); HEMOGLOBIN 13.9 g/dL (13.0-17.5); LYMPH # 2.2 x10^3/uL (1.0-4.8); LYMPH % 25 % (24-48); MEAN CORPUSCULAR HEMOGLOBIN 29 pg (25-35); MEAN CORPUSCULAR HGB CONC 34 g/dL (31-37); MEAN CORPUSCULAR VOLUME 86 fL (79-100); MONO # 0.9 x10^3/uL (0.0-1.1); MONO % 10 % (0-9); NEUT # 5.3 x10^3uL (1.8-7.7); NEUT % 61 % (31-73); PLATELET COUNT 304 x10^3/uL (140-400); RED BLOOD COUNT 4.76 x10^6/uL (4.30-5.70); WHITE BLOOD COUNT 8.7 x10^3/uL (4.0-11.0)
[2017-07-23] MEDS: INSULIN ASPART 300 UNITS/3 ML INSULN.PEN SQ SCH (07:30)
[2017-07-23] MEDS: BUDESONIDE 0.5 MG/2 ML NEBU NEB SCH (08:00)
[2017-07-23] MEDS ORDERED: INSULIN ASPART 300 UNITS/3 ML INSULN.PEN SQ ONE (08:15)
[2017-07-23] MEDS: FUROSEMIDE 40 MG/4 ML VIAL IVP SCH (08:20)
[2017-07-23] MEDS: metOLazone 2.5 MG TABLET PO SCH (08:20)
[2017-07-23] MEDS: CETIRIZINE HCL 10 MG TABLET PO SCH (08:21)
[2017-07-23] MEDS: ASPIRIN 81 MG TAB.CHEW PO SCH (08:21)
[2017-07-23] MEDS: PREGABALIN 150 MG CAPSULE PO SCH (08:21)
[2017-07-23] MEDS: TAMSULOSIN 0.4 MG CAP.ER.24H. PO SCH (08:21)
[2017-07-23] MEDS: PANTOPRAZOLE 40 MG TABLET. PO SCH (08:21)
[2017-07-23] MEDS: GABAPENTIN 300 MG CAPSULE. PO SCH (08:21)
[2017-07-23] MEDS: BENZONATATE 100 MG CAPSULE. PO SCH (08:21)
[2017-07-23] MEDS: RANOLAZINE 500 MG TAB.ER.12H PO SCH (08:22)
[2017-07-23 08:23] VITALS: BP 159/60
[2017-07-23] MEDS: METOPROLOL TART IMMED RELEASE 50 MG TABLET PO SCH (08:23)
[2017-07-23] MEDS: busPIRone 15 MG TABLET. PO SCH (08:25)
[2017-07-23] MEDS: AMMONIUM LACTATE 12% TOPICAL LOTION 226GM BOTTLE. TP SCH (08:25)
[2017-07-23] MEDS: FLUTICASONE 50MCG/NASAL SPRAY 16GM BOTTLE. NS SCH (08:25)
[2017-07-23] MEDS: MUPIROCIN 2% TOPICAL OINTMENT 22GM TUBE. TP SCH (08:25)
[2017-07-23] MEDS: POLYETHYLENE GLYCOL 3350 17 GM PACKET. PO SCH (09:00)
[2017-07-23] MEDS ORDERED: TAMS0.4C97 PO (09:50)
[2017-07-23] MEDS ORDERED: MUPI22OI2 TP (09:50)
--- NOTE | 2017-07-23 14:28 | PDOC3 ---
Discharge Summary Visit Information Date of Admission: Jul 21, 2017 Date of Discharge: Jul 23, 2017 Final Diagnosis essment/Plan 1. chronic diastolic heart failure 2. COPD exacerbation 3. peripheral edema 4. Coronary artery disease s/p prior PCI stents as described above 5. hypertension 6. hyperlipidemia 7. recent ARF on CKD 8. type 1 diabetes mellitus S: 1. Fluid overload. chronic diastolic heart failure. 4. Mild ingrown toenails. 5. Hyperuricemia. 6. Fatty liver. 7. A 15-pound weight gain. 8. History of coronary artery disease. 9. Chronic obstructive pulmonary disease. 10. Urinary retention. 11. Benign prostatic hypertrophy. Problems: Brief Hospital Course Allergies Allergies Coded Allergies Type Severity Reaction Last Updated Verified Losartan Allergy Intermediate vomiting 03/10/15 Yes Penicillins Allergy Intermediate 03/10/15 Yes morphine Allergy Intermediate irritation to iv site 03/10/15 Yes Vital Signs Vital Signs Date Time Temp Pulse Resp B/P (MAP) Pulse Ox O2 Delivery O2 Flow Rate FiO2 07/23/17 08:23 70 159/60 07/23/17 08:08 98 Nasal Cannula 2.0 07/23/17 06:23 97.0 07/23/17 06:18 19 Lab Results Laboratory Tests Test 07/21/17 15:00 07/21/17 16:32 07/21/17 16:59 07/21/17 17:14 White Blood Count 7.5 x10^3/uL (4.0-11.0) Red Blood Count 4.75 x10^6/uL (4.30-5.70) Hemoglobin 13.2 g/dL (13.0-17.5) Hematocrit 40.8 % (39.0-53.0) Mean Corpuscular Volume 86 fL (79-100) Mean Corpuscular Hemoglobin 28 pg (25-35) Mean Corpuscular Hemoglobin Concent 32 g/dL (31-37) Red Cell Distribution Width 15.8 % (11.5-14.5) Platelet Count 305 x10^3/uL (140-400) Neutrophils (%) (Auto) 63 % (31-73) Lymphocytes (%) (Auto) 22 % (24-48) Monocytes (%) (Auto) 10 % (0-9) Eosinophils (%) (Auto) 4 % (0-3) Basophils (%) (Auto) 1 % (0-3) Neutrophils # (Auto) 4.7 x10^3uL (1.8-7.7) Lymphocytes # (Auto) 1.7 x10^3/uL (1.0-4.8) Monocytes # (Auto) 0.7 x10^3/uL (0.0-1.1) Eosinophils # (Auto) 0.3 x10^3/uL (0.0-0.7) Basophils # (Auto) 0.1 x10^3/uL (0.0-0.2) Erythrocyte Sedimentation Rate 65 (0-15) Nasal Screen MRSA (PCR) Negative (Negative) Sodium Level 134 mmol/L (136-145) Potassium Level 3.9 mmol/L (3.5-5.1) Chloride Level 97 mmol/L (98-107) Carbon Dioxide Level 26 mmol/L (21-32) Anion Gap 11 (6-14) Blood Urea Nitrogen 42 mg/dL (8-26) Creatinine 1.5 mg/dL (0.7-1.3) Estimated GFR (Cockcroft-Gault) 47.6 BUN/Creatinine Ratio 28 (6-20) Glucose Level 319 mg/dL (70-99) Uric Acid 7.6 mg/dL (3.5-7.2) Calcium Level 9.0 mg/dL (8.5-10.1) Magnesium Level 1.8 mg/dL (1.8-2.4) Total Bilirubin 0.4 mg/dL (0.2-1.0) Aspartate Amino Transf (AST/SGOT) 21 U/L (15-37) Alanine Aminotransferase (ALT/SGPT) 25 U/L (16-63) Alkaline Phosphatase 144 U/L (46-116) Total Protein 7.0 g/dL (6.4-8.2) Albumin 3.1 g/dL (3.4-5.0) Albumin/Globulin Ratio 0.8 (1.0-1.7) Glucose (Fingerstick) 65 mg/dL (70-99) 41 mg/dL (70-99) 151 mg/dL (70-99) Test 07/21/17 18:00 07/21/17 21:21 07/22/17 00:10 07/22/17 05:40 Urine Collection Type Unknown Urine Color Straw Urine Clarity Clear Urine pH 5.5 Urine Specific [place] <=1.005 Urine Protein Neg (NEG-TRACE) Urine Glucose (UA) 100 mg/dL (NEG) Urine Ketones (Stick) Neg mg/dL (NEG) Urine Blood Neg (NEG) Urine Nitrite Neg (NEG) Urine Bilirubin Neg (NEG) Urine Urobilinogen Dipstick 0.2 mg/dL (0.2 mg/dL) Urine Leukocyte Esterase Neg (NEG) Urine RBC 0 /HPF (0-2) Urine WBC Occ /HPF (0-4) Urine Squamous Epithelial Cells Occ /LPF Urine Bacteria 0 /HPF (0-FEW) Glucose (Fingerstick) 304 mg/dL (70-99) 274 mg/dL (70-99) White Blood Count 6.6 x10^3/uL (4.0-11.0) Red Blood Count 4.72 x10^6/uL (4.30-5.70) Hemoglobin 13.9 g/dL (13.0-17.5) Hematocrit 39.7 % (39.0-53.0) Mean Corpuscular Volume 84 fL (79-100) Mean Corpuscular Hemoglobin 29 pg (25-35) Mean Corpuscular Hemoglobin Concent 35 g/dL (31-37) Red Cell Distribution Width 15.5 % (11.5-14.5) Platelet Count 287 x10^3/uL (140-400) Neutrophils (%) (Auto) 48 % (31-73) Lymphocytes (%) (Auto) 32 % (24-48) Monocytes (%) (Auto) 13 % (0-9) Eosinophils (%) (Auto) 6 % (0-3) Basophils (%) (Auto) 2 % (0-3) Neutrophils # (Auto) 3.1 x10^3uL (1.8-7.7) Lymphocytes # (Auto) 2.1 x10^3/uL (1.0-4.8) Monocytes # (Auto) 0.9 x10^3/uL (0.0-1.1) Eosinophils # (Auto) 0.4 x10^3/uL (0.0-0.7) Basophils # (Auto) 0.1 x10^3/uL (0.0-0.2) Sodium Level 135 mmol/L (136-145) Potassium Level 4.0 mmol/L (3.5-5.1) Chloride Level 97 mmol/L (98-107) Carbon Dioxide Level 34 mmol/L (21-32) Anion Gap 4 (6-14) Blood Urea Nitrogen 39 mg/dL (8-26) Creatinine 1.4 mg/dL (0.7-1.3) Estimated GFR (Cockcroft-Gault) 51.5 Glucose Level 145 mg/dL (70-99) Calcium Level 9.0 mg/dL (8.5-10.1) Magnesium Level 1.9 mg/dL (1.8-2.4) Test 07/22/17 08:04 07/22/17 11:46 07/22/17 15:41 07/22/17 16:51 Glucose (Fingerstick) 139 mg/dL (70-99) 418 mg/dL (70-99) 135 mg/dL (70-99) 168 mg/dL (70-99) Test 07/22/17 21:01 07/23/17 06:16 07/23/17 07:58 Glucose (Fingerstick) 223 mg/dL (70-99) 335 mg/dL (70-99) White Blood Count 8.7 x10^3/uL (4.0-11.0) Red Blood Count 4.76 x10^6/uL (4.30-5.70) Hemoglobin 13.9 g/dL (13.0-17.5) Hematocrit 40.8 % (39.0-53.0) Mean Corpuscular Volume 86 fL (79-100) Mean Corpuscular Hemoglobin 29 pg (25-35) Mean Corpuscular Hemoglobin Concent 34 g/dL (31-37) Red Cell Distribution Width 16.0 % (11.5-14.5) Platelet Count 304 x10^3/uL (140-400) Neutrophils (%) (Auto) 61 % (31-73) Lymphocytes (%) (Auto) 25 % (24-48) Monocytes (%) (Auto) 10 % (0-9) Eosinophils (%) (Auto) 3 % (0-3) Basophils (%) (Auto) 1 % (0-3) Neutrophils # (Auto) 5.3 x10^3uL (1.8-7.7) Lymphocytes # (Auto) 2.2 x10^3/uL (1.0-4.8) Monocytes # (Auto) 0.9 x10^3/uL (0.0-1.1) Eosinophils # (Auto) 0.2 x10^3/uL (0.0-0.7) Basophils # (Auto) 0.1 x10^3/uL (0.0-0.2) Sodium Level 134 mmol/L (136-145) Potassium Level 4.3 mmol/L (3.5-5.1) Chloride Level 95 mmol/L (98-107) Carbon Dioxide Level 34 mmol/L (21-32) Anion Gap 5 (6-14) Blood Urea Nitrogen 46 mg/dL (8-26) Creatinine 1.8 mg/dL (0.7-1.3) Estimated GFR (Cockcroft-Gault) 38.6 BUN/Creatinine Ratio 26 (6-20) Glucose Level 348 mg/dL (70-99) Calcium Level 9.1 mg/dL (8.5-10.1) Magnesium Level 2.1 mg/dL (1.8-2.4) Total Bilirubin 0.3 mg/dL (0.2-1.0) Aspartate Amino Transf (AST/SGOT) 21 U/L (15-37) Alanine Aminotransferase (ALT/SGPT) 31 U/L (16-63) Alkaline Phosphatase 162 U/L (46-116) Total Protein 7.3 g/dL (6.4-8.2) Albumin 3.1 g/dL (3.4-5.0) Albumin/Globulin Ratio 0.7 (1.0-1.7) Brief Hospital Course Mr. Adair is a 62 old WHO HAS BEEN PROGRESSIVELY GAINING WEIGHT AND RETAINING FLUID OVER THE LAST FEW WEEKS. HE WAS TREATED WITH IV LASIX AND LOST 11 POUNDS. HE WAS ALOS FOUND TO BE QUITE CONSTIPATED ON CT SCAN AND RECEIVED RELISTOR AND MIRALAX WHICH RELIEVED THE CONSTIPATION. HE WA SEEN BY CARDIOLOGY WHO DID NOT FEEL THIS WAS NA EXACERBATION OF CHF. HE WAS READY FOR DISCHARGE ON 07/23 AND WAS DISCHARGED IN GOOD CONDITION TO SEE DR. VELA THIS WEEK. Discharge Information Condition at Discharge: Improved Disposition/Orders: D/C to Home Dischare Medications Current Medications Furosemide (Lasix) 40 mg 1X ONCE IVP Last administered on 07/21/17 15:48; Start 07/21/17 at 15:30; Stop 07/21/17 at 15:31; Status DC Insulin Aspart (NovoLOG) 0-9 UNITS QIDACHS SQ Last administered on 07/21/17 21:37; Start 07/21/17 at 16:30; Stop 07/23/17 at 11:03; Status DC Dextrose 12.5 gm PRN Q15MIN PRN IV SEE COMMENTS Last administered on 17:12; Start 07/21/17 at 15:15; Stop 07/23/17 at 11:03; Status DC Lactic Acid (Lac-Hydrin) 1 sully BID TP Last administered on 07/23/17 08:25; Start 07/21/17 at 21:00; Stop 07/23/17 at 11:03; Status DC Aspirin (Children'S Aspirin) 81 mg DAILY PO Last administered on 07/23/17 08: 21; Start 07/22/17 at 09:00; Stop 07/23/17 at 11:03; Status DC Benzonatate (Tessalon Perle) 100 mg TID PO Last administered on 07/23/17 08: 21; Start 07/21/17 at 21:00; Stop 07/23/17 at 11:03; Status DC Buspirone HCl (Buspar) 15 mg BID PO Last administered on 07/23/17 08:25; Start 07/21/17 at 21:00; Stop 07/23/17 at 11:03; Status DC Cetirizine HCl (ZyrTEC) 10 mg DAILY PO Last administered on 07/23/17 08:21; Start 07/22/17 at 09:00; Stop 07/23/17 at 11:03; Status DC Gabapentin (Neurontin) 300 mg TID PO Last administered on 07/23/17 08:21; Start 07/21/17 at 21:00; Stop 07/23/17 at 11:03; Status DC Hydralazine HCl (Apresoline) 75 mg TID PO Last administered on 07/23/17 08:23 ; Start 07/21/17 at 21:00; Stop 07/23/17 at 11:03; Status DC Acetaminophen/ Hydrocodone Bitart (Lortab 10/325) 2 tab PRN Q6HRS PRN PO PAIN Last administered on 07/23/17 06:18; Start 07/21/17 at 16:00; Stop 07/23/17 at 11:03; Status DC Insulin Detemir (Levemir) 16 units HS SQ Last administered on 07/22/17 22:20 ; Start 07/21/17 at 21:00; Stop 07/23/17 at 11:03; Status DC Ipratropium [place] (Atrovent) 0.2 mg TID NEB ; Start 07/21/17 at 21:00; Status Cancel Metolazone (Zaroxolyn) 2.5 mg DAILY PO Last administered on 07/23/17 08:20; Start 07/22/17 at 09:00; Stop 07/23/17 at 11:03; Status DC Pregabalin (Lyrica) 150 mg DAILY PO Last administered on 07/23/17 08:21; Start 07/22/17 at 09:00; Stop 07/23/17 at 11:03; Status DC Ranolazine (Ranexa) 500 mg BID PO Last administered on 07/23/17 08:22; Start 07/21/17 at 21:00; Stop 07/23/17 at 11:03; Status DC Tamsulosin HCl (Flomax) 0.4 mg DAILY PO ; Start 07/22/17 at 09:00; Stop at 09:00; Status DC Non-Formulary Medication 15 mcg BID NEB ; Start 07/21/17 at 21:00; Stop at 21:00; Status DC Doxycycline Hyclate (Vibra-Tab) 100 mg BID PO ; Start 07/21/17 at 21:00; Stop 07/21/17 at 21:00; Status DC Pantoprazole Sodium (Protonix) 40 mg DAILYAC PO Last administered on 08:21; Start 07/22/17 at 07:30; Stop 07/23/17 at 11:03; Status DC Budesonide (Pulmicort) 0.5 mg RTBID NEB Last administered on 07/22/17 20:34; Start 07/21/17 at 20:00; Stop 07/23/17 at 11:03; Status DC Fluticasone Propionate (Flonase) 2 spray DAILY NS Last administered on 08:25; Start 07/22/17 at 09:00; Stop 07/23/17 at 11:03; Status DC Metoprolol Tartrate (Lopressor) 50 mg BID PO Last administered on 07/23/17 08 :23; Start 07/21/17 at 21:00; Stop 07/23/17 at 11:03; Status DC Pregabalin (Lyrica) 300 mg QHS PO Last administered on 07/22/17 21:14; Start 07/21/17 at 21:00; Stop 07/23/17 at 11:03; Status DC Atorvastatin Calcium (Lipitor) 40 mg QHS PO Last administered on 07/22/17 21: 14; Start 07/21/17 at 21:00; Stop 07/23/17 at 11:03; Status DC Albuterol/ Ipratropium (Duoneb) 3 ml RTQID NEB Last administered on 07/23/17 05:57; Start 07/21/17 at 20:00; Stop 07/23/17 at 11:03; Status DC Triamcinolone Acetonide (Kenalog) 1 sully BID PRN TP ITCHING Last administered on 07/22/17 08:42; Start 07/21/17 at 16:45; Stop 07/23/17 at 11:03; Status DC Tamsulosin HCl (Flomax) 0.4 mg BID PO Last administered on 07/23/17 08:21; Start 07/21/17 at 21:00; Stop 07/23/17 at 11:03; Status DC Mupirocin (Bactroban) 1 sully BID TP Last administered on 07/23/17 08:25; Start 07/21/17 at 21:00; Stop 07/23/17 at 11:03; Status DC Furosemide (Lasix) 40 mg BID92 IVP Last administered on 07/23/17 08:20; Start 07/22/17 at 09:15; Stop 07/23/17 at 11:03; Status DC Polyethylene Glycol (miraLAX) 17 gm DAILY PO ; Start 07/22/17 at 10:30; Stop 07/23/17 at 11:03; Status DC Methylnaltrexone [place] (Relistor) 12 mg 1X ONCE SQ Last administered on 12:17; Start 07/22/17 at 12:00; Stop 07/22/17 at 12:01; Status DC Enoxaparin Sodium (Lovenox) 40 mg Q24H SQ Last administered on 07/22/17 12:18 ; Start 07/22/17 at 12:00; Stop 07/23/17 at 11:03; Status DC Insulin Aspart (NovoLOG) 10 units 1X ONCE SQ Last administered on 07/22/17 12:22; Start 07/22/17 at 12:15; Stop 07/22/17 at 12:16; Status DC Insulin Aspart (NovoLOG) 6 units 1X ONCE SQ Last administered on 07/22/17 17 :24; Start 07/22/17 at 17:30; Stop 07/22/17 at 17:31; Status DC Enoxaparin Sodium (Lovenox) 40 mg Q24H SQ ; Start 07/22/17 at 18:30; Status UNV Insulin Aspart (NovoLOG) 6 units 1X ONCE SQ Last administered on 07/23/17 08 :39; Start 07/23/17 at 08:15; Stop 07/23/17 at 08:16; Status DC Active Scripts Active Flomax (Tamsulosin Hcl) 0.4 Mg Cap.er.24h 0.4 Mg PO BID 90 Days Mupirocin 22 Gm Oint...g. 1 Sully TP BID 7 Days Hydralazine Hcl 50 Mg Tablet 75 Mg PO TID 30 Days Reported Lasix (Furosemide) 40 Mg Tablet 40 Mg PO BID Spiriva (Tiotropium [place]) 18 Mcg Cap.w.dev 1 Cap IH DAILY Levemir Flextouch (Insulin Detemir) 100 Unit/1 Ml Insuln.pen 16 Unit SQ HS Skin Treatment (Ammonium Lactate) 225 Gm Lotion 225 Gm TP BID Gabapentin 300 Mg Capsule 300 Mg PO TID Benzonatate 100 Mg Capsule 1 Cap PO TID Cetirizine Hcl 10 Mg Tablet 1 Tab PO DAILY Triamcinolone Acetonide 15 Gm Oint...g. 1 Sully TP PRN BID PRN LAST DOSE GIVEN: DATE: TIME: NEXT DOSE DUE: DATE: TODAY TIME: WHEN NEEDED Nexium Capsule (Esomeprazole Magnesium) 40 Mg Capsule.dr 40 Mg PO DAILYAC LAST DOSE GIVEN: DATE: TIME: NEXT DOSE DUE: DATE: RESTART TOMORROW TIME: AM [place] 10-325 Tablet (Hydrocodone Bit/Acetaminophen) 1 Each Tablet 2 Tab PO PRN Q6HRS PRN LAST DOSE GIVEN: DATE: TIME: NEXT DOSE DUE: DATE: TODAY TIME: WHEN NEEDED Brovana (Arformoterol Tartrate) 15 Mcg/2 Ml Vial.neb 15 Mcg NEB BID LAST DOSE GIVEN: DATE: TIME: NEXT DOSE DUE: DATE: TODAY TIME: EVENING Humalog Kwikpen (Insulin Lispro) 200 Unit/1 Ml Insuln.pen 4-6 Unit SQ PRN BFRMEAL PRN LAST DOSE GIVEN: DATE: TODAY TIME: BEFORE LUNCH NEXT DOSE DUE: DATE: TODAY TIME: BEFORE DINNER Ipratropium [place] 0.2 Mg/1 Ml Solution 0.2 Mg NEB TID LAST DOSE GIVEN: DATE: TODAY TIME: AFTERNOON NEXT DOSE DUE: DATE: TODAY TIME: PM Ranexa (Ranolazine) 500 Mg Tab.er.12h 500 Mg PO BID LAST DOSE GIVEN: DATE: TODAY TIME: AM NEXT DOSE DUE: DATE: TODAY TIME: PM Aspirin 81 Mg Tab.chew 81 Mg PO DAILY LAST DOSE GIVEN: DATE: TODAY TIME: AM NEXT DOSE DUE: DATE: TOMORROW TIME: AM Advair 500-50 Diskus (Fluticasone/Salmeterol) 1 Each Disk.w.dev 1 Puff IH BID LAST DOSE GIVEN: DATE: TIME: NEXT DOSE DUE: DATE: RESTART TODAY TIME: PM Flomax (Tamsulosin Hcl) 0.4 Mg Cap.er.24h 0.4 Mg PO DAILY LAST DOSE GIVEN: DATE: TODAY TIME: AM NEXT DOSE DUE: DATE: TOMORROW TIME: AM Bystolic (Nebivolol Hcl) 10 Mg Tablet 10 Mg PO DAILY LAST DOSE GIVEN: DATE: TODAY TIME: AM NEXT DOSE DUE: DATE: TOMORROW TIME: AM Crestor (Rosuvastatin Calcium) 10 Mg Tablet 10 Mg PO HS LAST DOSE GIVEN: DATE: YESTERDAY TIME: AT BEDTIME NEXT DOSE DUE: DATE: TODAY TIME: AT BEDTIME Lyrica (Pregabalin) 300 Mg Capsule 300 Mg PO QHS LAST DOSE GIVEN: DATE: YESTER TIME: AT BEDTIME NEXT DOSE DUE: DATE: TODAY TIME: AT BEDTIME Lyrica (Pregabalin) 150 Mg Capsule 150 Mg PO DAILY LAST DOSE GIVEN: DATE: TODAY TIME: AM NEXT DOSE DUE: DATE: TOMORROW TIME: AM Metolazone 2.5 Mg Tablet 2.5 Mg PO DAILY LAST DOSE GIVEN: DATE: TIME: AM NEXT DOSE DUE: DATE: TOMORROW TIME: AM Buspirone Hcl 15 Mg Tablet 15 Mg PO BID LAST DOSE GIVEN: DATE: TIME: AM NEXT DOSE DUE: DATE: TODAY TIME: PM Proair Hfa Inhaler (Albuterol Sulfate) 8.5 Gm Hfa.aer.ad 1-2 Puff INH PRN Q4- 6HRS PRN LAST DOSE GIVEN: DATE: TIME: NEXT DOSE DUE: DATE: TODAY TIME: WHEN NEEDED Nasonex (Mometasone Furoate) 17 Gm [place].pump 2 Sprays NS BID LAST DOSE GIVEN: DATE: TIME: AM NEXT DOSE DUE: DATE: TODAY TIME: PM Patient Instructions Patient Instuctions TO SEE DR. VELA NEXT WEEK FOR REPEAT LABS. DAILY WEIGHTS. MAY NEED TREATMENT FOR ELEVATED URIC ACID. ENCOURAGED TO GO TO [facility] MANAGER. BRENDA DELAROSA DO Jul 23, 2017 14:28
== END 2017-07-23 11:02 | disposition home or self-care (01) ==
LOC: INTOOBSV 14:37 → ICU 14:37
PROVIDERS: ADMIT Family Medicine; ATTEND Family Medicine
DX: I13.0 Hypertensive heart and chronic kidney disease with heart failure and stage 1 through stage 4 chronic kidney disease, or unspecified chronic kidney disease (principal); I50.33 Acute on chronic diastolic (congestive) heart failure; N18.9 Chronic kidney disease, unspecified; J44.9 Chronic obstructive pulmonary disease, unspecified; E10.51 Type 1 diabetes mellitus with diabetic peripheral angiopathy without gangrene; E10.22 Type 1 diabetes mellitus with diabetic chronic kidney disease; E11.40 Type 2 diabetes mellitus with diabetic neuropathy, unspecified; L60.0 Ingrowing nail; E79.0 Hyperuricemia without signs of inflammatory arthritis and tophaceous disease; K76.0 Fatty (change of) liver, not elsewhere classified; R63.5 Abnormal weight gain; E10.649 Type 1 diabetes mellitus with hypoglycemia without coma; I25.810 Atherosclerosis of coronary artery bypass graft(s) without angina pectoris; E78.5 Hyperlipidemia, unspecified; R33.9 Retention of urine, unspecified; N40.0 Benign prostatic hyperplasia without lower urinary tract symptoms; Z87.891 Personal history of nicotine dependence
CPT/HCPCS: 36415; 71020; 71250; 74176; 80048; 80053; 81001; 82947; 83735; 84550; 85025; 85651; 87641; 93971; 94640; 96372; 96374; 96375; 96376; G0378; G0379; J1650; J1815; J1940; J2212; J7620; J7626

== ENCOUNTER 2017-10-10 11:39 | Observation (INO) | payer OTHER ==
[~2017-10-10] VITALS: Ht 162.6 cm; Wt 85.7 kg
[~2017-10-10 11:39] MED LIST changes: +AMMO225L8 TP; +BENZ-8 PO; +DOXY100C2 PO; +MUPI22OI2 TP
[2017-10-10 12:07] VITALS: BP 152/59
[2017-10-10 12:22] LABS: BASO # 0.1 x10^3/uL (0.0-0.2); BASO % 1 % (0-3); EOS # 0.5 x10^3/uL (0.0-0.7); EOS % 7 % (0-3); HEMATOCRIT 41.7 % (39.0-53.0); LYMPH # 1.3 x10^3/uL (1.0-4.8); LYMPH % 18 % (24-48); MEAN CORPUSCULAR HEMOGLOBIN 29 pg (25-35); MEAN CORPUSCULAR HGB CONC 34 g/dL (31-37); MEAN CORPUSCULAR VOLUME 86 fL (79-100); MONO # 0.6 x10^3/uL (0.0-1.1); MONO % 8 % (0-9); NEUT # 4.5 x10^3uL (1.8-7.7); NEUT % 66 % (31-73); PLATELET COUNT 298 x10^3/uL (140-400); RED BLOOD COUNT 4.87 x10^6/uL (4.30-5.70); RED CELL DISTRIBUTION WIDTH 14.3 % (11.5-14.5); WHITE BLOOD COUNT 6.9 x10^3/uL (4.0-11.0)
[2017-10-10 12:45] LABS: ALBUMIN 3.5 g/dL (3.4-5.0); ALBUMIN/GLOBULIN RATIO 0.9 (1.0-1.7); CALCIUM 9.1 mg/dL (8.5-10.1); GFR 34.1; MAGNESIUM 1.8 mg/dL (1.8-2.4); POTASSIUM 3.9 mmol/L (3.5-5.1); TOTAL BILIRUBIN 0.3 mg/dL (0.2-1.0); TOTAL PROTEIN 7.4 g/dL (6.4-8.2)
--- NOTE | 2017-10-10 12:51 | RAD ---
EXAM: CHEST 2 VIEWS History: Shortness of breath, pneumonia COMPARISON: 07/21/2017 TECHNIQUE: PA and lateral chest radiographs FINDINGS: The cardiomediastinal silhouette is within normal limits. Minimal bibasal lung airspace opacities likely atelectasis or infiltrates.The costophrenic sulci are clear and well demarcated bilaterally. IMPRESSION: Minimal bibasal lung airspace opacities likely atelectasis or infiltrates.
[2017-10-10 13:34] LABS: INFLUENZA A PATIENT NEGATIVE (NEGATIVE); INFLUENZA B PATIENT NEGATIVE (NEGATIVE)
[2017-10-10] MEDS ORDERED: ALBUTEROL SULFATE 8GM INHALER. INH PRN (13:45)
[2017-10-10] MEDS ORDERED: IPRATROPIUM BROMIDE 0.5 MG/2.5 ML NEBU. NEB SCH (14:00)
[2017-10-10] MEDS ORDERED: ONDANSETRON ODT 4 MG TAB.RAPDIS PO PRN (14:15)
[2017-10-10] MEDS ORDERED: ALBUTEROL SULFATE 2.5 MG/3 ML NEBU. NEB PRN (14:15)
[2017-10-10] MEDS ORDERED: DEXTROSE 50% 25 GM / 50ML DISP.SYRIN. IV PRN (14:15)
[2017-10-10] MEDS ORDERED: TRIAMCINOLONE ACETONIDE 0.1% TOPICAL CREAM 15GM TUBE. TP PRN (14:15)
[2017-10-10] MEDS ORDERED: ONDANSETRON ODT 4 MG TAB.RAPDIS PO ONE (14:30)
[2017-10-10 15:14] VITALS: BP 147/60
[2017-10-10] MEDS: IV NORMAL SALINE 1,000ML 1,000 ML IV SCH ×2 (15:18→22:31)
[2017-10-10] MEDS: GABAPENTIN 300 MG CAPSULE. PO SCH ×2 (15:19→20:26)
[2017-10-10] MEDS: PANTOPRAZOLE IV 40 MG VIAL. IVP SCH (15:28)
[2017-10-10] MEDS: HYDROcodone/APAP 10/325 1 TAB TABLET PO PRN (15:28)
[2017-10-10] MEDS: methylPREDNISolone SOD SUCC PF 40 MG/ML VIAL. IV SCH ×2 (15:28→22:30)
[2017-10-10] MEDS ORDERED: IPRATRPIUM/ALBUTEROL 0.5/2.5MG 3 ML NEBU. NEB SCH (16:00)
--- NOTE | 2017-10-10 16:04 | RAD ---
Examination: Frontal view of the abdomen History: History of abdominal distention Comparison: 10/04/2012 Findings: Cholecystectomy clips are identified in the right upper quadrant of the abdomen. The bowel gas pattern appears unremarkable. Patient body habitus limits evaluation. Impression: Unremarkable bowel gas pattern. Limited examination due to patient body habitus.
[2017-10-10] MEDS: IPRATRPIUM/ALBUTEROL 0.5/2.5MG 3 ML NEBU. NEB SCH ×2 (16:58→21:52)
[2017-10-10] MEDS: INSULIN ASPART 300 UNITS/3 ML INSULN.PEN SQ SCH ×2 (17:06→20:35)
[2017-10-10 19:42] VITALS: BP 126/51
[2017-10-10] MEDS: PREGABALIN 150 MG CAPSULE PO SCH (20:26)
[2017-10-10] MEDS: RANOLAZINE 500 MG TAB.ER.12H PO SCH (20:27)
[2017-10-10] MEDS: AMMONIUM LACTATE 12% TOPICAL LOTION 226GM BOTTLE. TP SCH (20:27)
[2017-10-10] MEDS: ATORVASTATIN CALCIUM 20 MG TABLET PO SCH (20:27)
[2017-10-10] MEDS: busPIRone 15 MG TABLET. PO SCH (20:27)
[2017-10-10] MEDS: INSULIN DETEMIR 300 UNITS/3 ML INSULN.PEN. SQ SCH (20:33)
[2017-10-10] MEDS ORDERED: NON FORMULARY ITEM (Fluticasone/Salmeterol (Advair 500-50 Diskus) 1 PUFF) IH SCH (21:00)
[2017-10-10] MEDS ORDERED: NON FORMULARY ITEM (Arformoterol Tartrate (Brovana) 15 MCG) NEB SCH (21:00)
[2017-10-10] MEDS: BUDESONIDE 0.5 MG/2 ML NEBU NEB SCH (21:52)
[2017-10-10 22:35] VITALS: BP 150/68
[2017-10-11] MEDS: HYDROcodone/APAP 10/325 1 TAB TABLET PO PRN ×3 (05:38→22:30)
[2017-10-11] MEDS: methylPREDNISolone SOD SUCC PF 40 MG/ML VIAL. IV SCH ×2 (05:38→20:19)
[2017-10-11 05:47] VITALS: BP 125/77
[2017-10-11] MEDS: IPRATRPIUM/ALBUTEROL 0.5/2.5MG 3 ML NEBU. NEB SCH ×4 (05:51→21:32)
[2017-10-11 06:50] LABS: BASO # 0.2 x10^3/uL (0.0-0.2); BASO % 1 % (0-3); EOS % 0 % (0-3); HEMATOCRIT 39.1 % (39.0-53.0); HEMOGLOBIN 12.6 g/dL (13.0-17.5); LYMPH # 0.4 x10^3/uL (1.0-4.8); LYMPH % 3 % (24-48); MEAN CORPUSCULAR HEMOGLOBIN 28 pg (25-35); MEAN CORPUSCULAR HGB CONC 32 g/dL (31-37); MEAN CORPUSCULAR VOLUME 89 fL (79-100); MONO % 0 % (0-9); NEUT # 12.5 x10^3uL (1.8-7.7); NEUT % 96 % (31-73); PLATELET COUNT 285 x10^3/uL (140-400); RED BLOOD COUNT 4.42 x10^6/uL (4.30-5.70); RED CELL DISTRIBUTION WIDTH 14.5 % (11.5-14.5)
[2017-10-11 06:54] LABS: ALBUMIN/GLOBULIN RATIO 0.9 (1.0-1.7); CALCIUM 8.6 mg/dL (8.5-10.1); CREATININE 2.3 mg/dL (0.7-1.3); GFR 29.1; MAGNESIUM 1.8 mg/dL (1.8-2.4); POTASSIUM 4.8 mmol/L (3.5-5.1); TOTAL BILIRUBIN 0.4 mg/dL (0.2-1.0); TOTAL PROTEIN 6.5 g/dL (6.4-8.2)
[2017-10-11] MEDS: INSULIN ASPART 300 UNITS/3 ML INSULN.PEN SQ SCH ×4 (07:30→20:14)
[2017-10-11] MEDS ORDERED: PANTOPRAZOLE 40 MG TABLET. PO SCH (07:30)
[2017-10-11] MEDS ORDERED: INSULIN ASPART 300 UNITS/3 ML INSULN.PEN SQ ONE ×6 (08:00→23:45)
[2017-10-11 08:53] LABS: % SEGS 94 % (35-66)
[2017-10-11 08:54] LABS: % BANDS 4 % (0-9); % LYMPHS 2 % (24-48); PLT ESTIMATE ADEQUATE (ADEQUATE)
[2017-10-11] MEDS: TAMSULOSIN 0.4 MG CAP.ER.24H. PO SCH (08:58)
[2017-10-11] MEDS: METOPROLOL TART IMMED RELEASE 50 MG TABLET PO SCH ×2 (08:59→20:17)
[2017-10-11] MEDS: ASPIRIN 81 MG TAB.CHEW PO SCH (08:59)
[2017-10-11] MEDS: AMMONIUM LACTATE 12% TOPICAL LOTION 226GM BOTTLE. TP SCH ×2 (09:00→20:19)
[2017-10-11] MEDS: busPIRone 15 MG TABLET. PO SCH ×2 (09:00→20:18)
[2017-10-11] MEDS: PREGABALIN 150 MG CAPSULE PO SCH ×2 (09:00→20:17)
[2017-10-11] MEDS ORDERED: NON FORMULARY ITEM (Tiotropium Bromide (Spiriva) 1 CAP) IH SCH (09:00)
[2017-10-11] MEDS: GABAPENTIN 300 MG CAPSULE. PO SCH ×3 (09:01→20:18)
[2017-10-11] MEDS: RANOLAZINE 500 MG TAB.ER.12H PO SCH ×2 (09:03→20:18)
[2017-10-11] MEDS: CETIRIZINE HCL 10 MG TABLET PO SCH (09:04)
[2017-10-11] MEDS: FLUTICASONE 50MCG/NASAL SPRAY 16GM BOTTLE. NS SCH (09:05)
[2017-10-11] MEDS: PANTOPRAZOLE IV 40 MG VIAL. IVP SCH (09:05)
[2017-10-11] MEDS: IV NORMAL SALINE 1,000ML 1,000 ML IV SCH ×2 (10:00→21:09)
[2017-10-11 11:14] VITALS: BP 120/53
[2017-10-11] MEDS: BUDESONIDE 0.5 MG/2 ML NEBU NEB SCH ×2 (11:15→21:33)
--- NOTE | 2017-10-11 12:46 | HP ---
ADMIT DATE: 10/10/2017 REASON FOR ADMISSION: This is a 62-year-old male who was a direct admit from Dr. Dao Dubois's office where he had been having problems with throwing up, diarrhea x 6, coughing, eyes feeling like sandpaper, shortness of breath, positive sputum production, glucose is running high at home, aching all over, chilling but no fever. Last Monday and Monday also had liquidy bad smelling stool 6 times. He had been on Levaquin for "double pneumonia" when he was seen at [facility]. PAST MEDICAL HISTORY: COPD, diastolic heart failure, has had [id number] CHF as well chronic, chronic edema, peripheral vascular disease, type 1 diabetes, renal failure, fatty liver, hypertension, GERD, sarcoidosis, venous stasis, gastroparesis, onychomycosis, sleep apnea, chronic low back pain, diabetic neuropathy, stress and anxiety, also has a history of MRSA, constipation, and BPH. ALLERGIES: LOSARTAN, PENICILLIN, and MORPHINE. MEDICATIONS: The patient has been taken off metolazone and corrected on the NOV. FAMILY HISTORY: Negative. SOCIAL HISTORY: Quit smoking in 1988. No alcohol or drug use. Lives in [place]. REVIEW OF SYSTEMS: As per HPI. OBJECTIVE: VITAL SIGNS: Blood pressure 125/77, pulse 97, temperature 97.9, respirations 20, pulse ox is 94% on 2 liters. The patient was also walked in the [place]ente on room air, basically dropped down to 88% after 1 minute and 86% after 2 minutes. GENERAL: Color, slightly pale. Lower eye area right directly below eyes slightly puffy. HEENT: Hearing is normal. Eyes are clear. Throat was clear. NECK: Supple. LUNGS: With diffuse wheezing, inspiratory and expiratory. CARDIOVASCULAR: Regular rhythm and rate. ABDOMEN: Mildly protuberant. Bowel sounds were positive. Nontender. EXTREMITIES: Without edema. LABORATORY DATA: Sodium slightly low at 132, CO2 of 21, BUN 59, creatinine 2.3. Glucoses have been running high from the steroid he received. This morning on 10/11/2017 was 607. Admitting BUN was 47, creatinine 2.0. Chest x-ray, minimal bibasilar lung airspace opacity, likely atelectasis or infiltrates. This is doubtful on the infiltrate as he does not have a white count was just on antibiotics, though elevated white count today is from steroids. Also influenza is negative. ASSESSMENT: 1. Hovet-gz-rslysti respiratory failure, hypoxic. 2. Acute exacerbation of chronic obstructive pulmonary disease. 3. Acute renal failure, questionable etiology, had been on 2 different diuretics. Metolazone has been discontinued and Lasix being held. 4. Severe hyperglycemia secondary to steroids for his lungs. PLAN: Aggressive insulin therapy, supplemental scale. Decrease steroids. He will need daytime oxygen at home, could not discharge him today due to the hyperglycemia and worsening renal function. BRENDA DELAROSA DO DR: MARCOS/soledad JOB#: [id number] / [id number]
[2017-10-11 14:17] VITALS: BP 131/55
[2017-10-11 19:05] VITALS: BP 130/56
[2017-10-11] MEDS: INSULIN DETEMIR 300 UNITS/3 ML INSULN.PEN. SQ SCH (20:13)
[2017-10-11] MEDS: ATORVASTATIN CALCIUM 20 MG TABLET PO SCH (20:17)
[2017-10-11 22:27] VITALS: BP 154/72
[2017-10-12] MEDS ORDERED: INSULIN ASPART 300 UNITS/3 ML INSULN.PEN SQ ONE (01:30)
[2017-10-12 05:13] VITALS: BP 155/69
[2017-10-12] MEDS: IPRATRPIUM/ALBUTEROL 0.5/2.5MG 3 ML NEBU. NEB SCH ×2 (05:59→09:17)
[2017-10-12] MEDS: IV NORMAL SALINE 1,000ML 1,000 ML IV SCH (06:00)
[2017-10-12 06:32] LABS: BASO % 0 % (0-3); EOS % 0 % (0-3); HEMATOCRIT 38.2 % (39.0-53.0); HEMOGLOBIN 12.8 g/dL (13.0-17.5); LYMPH # 0.9 x10^3/uL (1.0-4.8); LYMPH % 6 % (24-48); MEAN CORPUSCULAR HEMOGLOBIN 29 pg (25-35); MEAN CORPUSCULAR HGB CONC 33 g/dL (31-37); MEAN CORPUSCULAR VOLUME 85 fL (79-100); MONO # 0.6 x10^3/uL (0.0-1.1); MONO % 4 % (0-9); NEUT # 14.5 x10^3uL (1.8-7.7); NEUT % 91 % (31-73); PLATELET COUNT 329 x10^3/uL (140-400); RED BLOOD COUNT 4.48 x10^6/uL (4.30-5.70); RED CELL DISTRIBUTION WIDTH 14.6 % (11.5-14.5)
[2017-10-12 06:52] LABS: ALBUMIN 3.4 g/dL (3.4-5.0); ALBUMIN/GLOBULIN RATIO 0.9 (1.0-1.7); CALCIUM 9.5 mg/dL (8.5-10.1); CREATININE 1.6 mg/dL (0.7-1.3); GFR 44.2; MAGNESIUM 1.8 mg/dL (1.8-2.4); POTASSIUM 4.5 mmol/L (3.5-5.1); TOTAL BILIRUBIN 0.3 mg/dL (0.2-1.0); TOTAL PROTEIN 7.1 g/dL (6.4-8.2)
[2017-10-12] MEDS ORDERED: PANTOPRAZOLE 40 MG TABLET. PO SCH (07:30)
[2017-10-12] MEDS: INSULIN ASPART 300 UNITS/3 ML INSULN.PEN SQ SCH (07:58)
[2017-10-12] MEDS: ASPIRIN 81 MG TAB.CHEW PO SCH (08:05)
[2017-10-12] MEDS: HYDROcodone/APAP 10/325 1 TAB TABLET PO PRN (08:06)
[2017-10-12] MEDS: PREGABALIN 150 MG CAPSULE PO SCH (08:07)
[2017-10-12] MEDS: METOPROLOL TART IMMED RELEASE 50 MG TABLET PO SCH (08:07)
[2017-10-12] MEDS: busPIRone 15 MG TABLET. PO SCH (08:08)
[2017-10-12] MEDS: RANOLAZINE 500 MG TAB.ER.12H PO SCH (08:08)
[2017-10-12] MEDS: CETIRIZINE HCL 10 MG TABLET PO SCH (08:08)
[2017-10-12] MEDS: GABAPENTIN 300 MG CAPSULE. PO SCH (08:08)
[2017-10-12 08:09] VITALS: BP 155/69
[2017-10-12] MEDS: FLUTICASONE 50MCG/NASAL SPRAY 16GM BOTTLE. NS SCH (08:10)
[2017-10-12] MEDS: methylPREDNISolone SOD SUCC PF 40 MG/ML VIAL. IV SCH (08:11)
[2017-10-12] MEDS: TAMSULOSIN 0.4 MG CAP.ER.24H. PO SCH (08:13)
[2017-10-12] MEDS: BUDESONIDE 0.5 MG/2 ML NEBU NEB SCH (09:17)
== END 2017-10-12 11:00 | disposition home or self-care (01) ==
LOC: 1 SOUTH 11:39 → INTOOBSV 11:39
PROVIDERS: ADMIT Family Medicine; ATTEND Family Medicine
DX: J96.21 Acute and chronic respiratory failure with hypoxia (principal); J44.1 Chronic obstructive pulmonary disease with (acute) exacerbation; N17.9 Acute kidney failure, unspecified; I50.32 Chronic diastolic (congestive) heart failure; I11.0 Hypertensive heart disease with heart failure; K21.9 Gastro-esophageal reflux disease without esophagitis; E10.65 Type 1 diabetes mellitus with hyperglycemia; E10.43 Type 1 diabetes mellitus with diabetic autonomic (poly)neuropathy; E10.51 Type 1 diabetes mellitus with diabetic peripheral angiopathy without gangrene; G89.29 Other chronic pain; Z87.891 Personal history of nicotine dependence
CPT/HCPCS: 36415; 71046; 74018; 80053; 82947; 83735; 83880; 85007; 85025; 87804; 94640; 94760; 96361; 96372; 96374; 96375; 96376; 99285; C9113; G0378; J1815; J2920; J7620; J7626; Q0162; G0379; J7030

== ENCOUNTER → 2019-02-04 | Outpatient (CLI) | payer OTHER ==
[~2019-02-04] MED LIST changes: +ALBU2.5V8 IH; +ALBU2.5V8 INH; -ALBU8.5H8 IH; -ALBU8.5H8 INH; -AMLO2.5T PO; +AMLO2.5T5 PO; +AMLO5TAB10 PO; -AMLO5TAB2 PO; -CARV12.52 PO; +CARV12.547 PO; -HYDR-2766 PO; +HYDR-2769 PO; +HYDR-3136 PO; -HYDR-963 PO; +LOSA100T14 PO; -LOSA100T6 PO
--- NOTE | 2019-02-04 16:27 | RAD ---
EXAM: Abdomen sonogram. HISTORY: Abnormal liver function laboratory values. TECHNIQUE: Sonographic imaging of the abdomen was performed. COMPARISON: CT dated 07/22/2017. FINDINGS: The liver is enlarged. There is hepatic steatosis. There is a 2.4 cm hypoechoic lesion within the right hepatic lobe. The common bile duct is normal in caliber for patient age. The gallbladder is surgically absent. The kidneys are unremarkable. The spleen is normal in size and contains granulomas. The pancreas, aorta and inferior vena cava are predominantly obscured due to bowel gas and body habitus. IMPRESSION: 1. Hepatomegaly and hepatic steatosis. 2. 2.4 cm hyperechoic lesion within the right hepatic lobe. In the absence of known malignancy, this is likely a hemangioma or geographic fatty deposition. 3. Cholecystectomy. 4. Predominantly obscured midline structures due to bowel gas and body habitus. Electronically signed by: Sharron Church MD (02/04/2019 4:24 PM) [facility]
== END | disposition home or self-care (01) ==
LOC: US 14:15
PROVIDERS: ATTEND Family Medicine
DX: K76.0 Fatty (change of) liver, not elsewhere classified (principal); K76.89 Other specified diseases of liver; D73.89 Other diseases of spleen; R16.0 Hepatomegaly, not elsewhere classified; Z90.49 Acquired absence of other specified parts of digestive tract
CPT/HCPCS: 76700

== ENCOUNTER → 2021-09-01 | Outpatient (CLI) | payer OTHER, MEDICAID ==
[~2021-09-01] MED LIST changes: +AMLO-186 PO; -AMLO5TAB10 PO; +CLIN-95 PO; -CLIN300C8 PO; -DOXY100C2 PO; +DOXY100C3 PO; -MOME17SP NS; +MOME17SP5 NS; -PHEN37.5 PO; +PHEN37.59 PO
[2021-09-01 14:38] LABS: ALBUMIN 2.8 g/dL (3.4-5.0); ALBUMIN/GLOBULIN RATIO 0.9 (1.0-1.7); CALCIUM 8.4 mg/dL (8.5-10.1); CREATININE 1.6 mg/dL (0.7-1.3); GFR 43.6; POTASSIUM 4.7 mmol/L (3.5-5.1); TOTAL BILIRUBIN 0.5 mg/dL (0.2-1.0)
== END ==
LOC: LAB 13:11
PROVIDERS: ATTEND Family Medicine
DX: I50.33 Acute on chronic diastolic (congestive) heart failure (principal)
CPT/HCPCS: 36415; 80053